=== PATIENT | male | born 1955 | race Caucasian/White ===

== ENCOUNTER 2023-05-08 10:00 | Inpatient (IN) | payer OTHER ==
[~2023-05-08] VITALS: Ht 170.2 cm; Wt 76.1 kg
[~2023-05-08 10:00] MED LIST: APIX5TAB PO; ATO40T PO; BENA-36 PO; MET50T PO; TRAM50TA2 PO; [UNRECOGNIZED DRUG - CODE] IM
[2023-05-13] MEDS: ceFAZolin 2 GM/D5W50ml 50 ML IV ONE (12:28)
[2023-05-13] MEDS ORDERED: HYDROmorphone HCL 2 MG/ML VL/or syr ONE (13:40)
[2023-05-13] MEDS ORDERED: ONDANSETRON HCL 4 MG/2 ML VIAL ONE (13:40)
[2023-05-13] MEDS ORDERED: PROPOFOL 10 MG/ML 20 ML IV ONE ×2 (13:40→15:52)
[2023-05-13] MEDS ORDERED: DexAMETHasone SOD PHOS 10MG/1ML VIAL INJ ONE (13:40)
[2023-05-13] MEDS ORDERED: MIDAZOLAM HCL 2MG/2ML 2ml VIAL (1mg/ml) ONE (13:40)
[2023-05-13] MEDS ORDERED: fentaNYL CITRATE 100 MCG/2 ML VL ONE (13:40)
[2023-05-13] MEDS ORDERED: SODIUM CHLORIDE LOCK 50 ML ONE (13:40)
[2023-05-13] MEDS ORDERED: ROCURONIUM 10MG/ML 10ML VIAL IV ONE (13:40)
[2023-05-13] MEDS: LIDOCAINE 1% HCL (LOCAL ANESTH.) INJ 20ML MDV ONE (14:11)
[2023-05-13] MEDS: TRANEXAMIC ACID 20 ML ONE (14:45)
[2023-05-13] MEDS: D5W/SOD CHLO 0.9% 1,000 ML IV SCH (17:45)
[2023-05-13] MEDS ORDERED: ACETAMINOPHEN 325 MG TAB PO PRN (17:45)
[2023-05-13] MEDS ORDERED: ONDANSETRON HCL 4 MG/2 ML VIAL IV PRN ×2 (17:45→18:45)
[2023-05-13] MEDS: ceFAZolin 1GM/50ML 50 ML IV SCH (17:45)
[2023-05-13] MEDS ORDERED: NITROGLYCERIN 0.4 MG SL TAB SL PRN (17:45)
[2023-05-13] MEDS ORDERED: MORPHINE SULFATE INJ 2 MG/ml SYRG IV PRN (17:45)
[2023-05-13 18:36] VITALS: O2SAT 93
[2023-05-13] MEDS: HYDROmorphone HCL 2 MG/ML VL/or syr ONE (18:40)
[2023-05-13] MEDS: HYDROmorphone HCL 2 MG/ML VL/or syr IV PRN (18:41)
[2023-05-13] MEDS ORDERED: MORPHINE SULFATE 4 MG/ML SYR/VIAL IV PRN (18:45)
[2023-05-13] MEDS ORDERED: LABETALOL HCL 5 MG/ML 4ML SYRINGE IV PRN (18:45)
[2023-05-13] MEDS ORDERED: ePHEDrine SULFATE 50 MG/ML AMP IV PRN (18:45)
[2023-05-13] MEDS ORDERED: MIDAZOLAM HCL 2MG/2ML 2ml VIAL (1mg/ml) IV PRN (18:45)
[2023-05-13] MEDS: CYCLOBENZAPRINE HCL 10 MG TAB PO SCH (18:50)
[2023-05-13 19:50] VITALS: BP 142/66; PULSE 86; RESP 18; TEMP 98; O2SAT 96
[2023-05-13 20:00] VITALS: PULSE 86
[2023-05-13] MEDS: MORPHINE SULFATE INJ 2 MG/ml SYRG IV PRN (20:22)
[2023-05-13] MEDS: DOCUSATE SOD 100 MG CAP PO SCH (21:32)
[2023-05-13] MEDS: HYDROcodone-ACET 10/325MG TAB PO PRN (21:49)
[2023-05-13 22:00] VITALS: BP 136/80; PULSE 80; RESP 18; TEMP 97.8; O2SAT 96
[2023-05-14] VITALS (7 sets, daily range): BP systolic 142–163; BP diastolic 85–123; PULSE 67–110; RESP 18–20; TEMP 97.8–99; O2SAT 93–97
[2023-05-14] MEDS: ceFAZolin 1GM/50ML 50 ML IV SCH (12:32)
[2023-05-14] MEDS: HYDROmorphone HCL 2 MG TAB PO PRN (14:42)
[2023-05-14] MEDS: CARISOPRODOL 350 MG TAB PO SCH (14:42)
[2023-05-14] MEDS ORDERED: METOPROLOL TARTRATE 50 MG TAB PO SCH (17:00)
[2023-05-14] MEDS: ATORVASTATIN 20 MG TAB PO SCH (20:34)
[2023-05-14] MEDS ORDERED: ceFAZolin 1GM/50ML 50 ML IV SCH (21:00)
[2023-05-14] MEDS: METOPROLOL TARTRATE 50 MG TAB PO SCH (22:47)
[2023-05-15] VITALS (8 sets, daily range): BP systolic 134–161; BP diastolic 83–108; PULSE 94–117; RESP 18–21; TEMP 97.8–99.2; O2SAT 92–95
[2023-05-15] MEDS: BENAZEPRIL HCL 10 MG TAB PO SCH (09:37)
[2023-05-15] MEDS ORDERED: CYCL-839 PO (14:08)
[2023-05-15] MEDS ORDERED: OXYC-113 PO (14:08)
[2023-05-16] VITALS (8 sets, daily range): BP systolic 128–164; BP diastolic 84–99; PULSE 79–98; RESP 16–21; TEMP 97.5–98.7; O2SAT 93–96
[2023-05-16] MEDS: POLYETHYLENE GLYCOL 17 GM PWDR PO PRN (10:40)
[2023-05-17] VITALS (7 sets, daily range): BP systolic 143–154; BP diastolic 86–95; PULSE 90–108; RESP 18–20; TEMP 97.9–99; O2SAT 92–96
[2023-05-18] VITALS (7 sets, daily range): BP systolic 125–156; BP diastolic 76–92; PULSE 83–171; RESP 18–20; TEMP 36.9; O2SAT 92–96
[2023-05-18] MEDS: METOPROLOL TARTRATE 1MG/1ML-5ML VIAL IV ONE ×2 (07:02→07:25)
[2023-05-18] MEDS: SODIUM CHLORIDE 0.9% 500 ML IV ONE (09:34)
[2023-05-18 09:37] LABS: Basophils # (auto) 0 10 ^3/uL (0-0.2); Basophils % (auto) 0.3 % (0.0-2.0); Eosinophils # (auto) 0.2 10 ^3/uL (0-0.8); Eosinophils % (auto) 1.6 % (0.0-7.0); Hemoglobin 17.5 g/dL (13.5-17.5); Lymphocytes # (auto) 1.7 10 ^3/uL (0.4-5.4); Lymphocytes % (auto) 16.2 % (10.0-50.0); Mean Corpuscular Hemoglobin 32.2 pg (28.0-32.0); Mean Corpuscular Hgb Conc. 33.1 g/dL (32.0-36.0); Mean Corpuscular Volume 97.4 fL (80.0-100.0); Monocytes # (auto) 0.9 10 ^3/uL (0-1.3); Neutrophils # (auto) 7.6 10 ^3/uL (1.6-8.6); Neutrophils % (auto) 72.9 % (37.0-80.0); Nucleated Red Blood Cells % 0.1 %; Red Blood Cells 5.44 10^6/uL (4.5-5.90); Red Cell Distribution Width 13.6 % (11.8-14.3); White Blood Cell 10.4 10^3/uL (4.4-10.8)
[2023-05-18 10:08] LABS: Alanine Aminotransferase 45 U/L (7-40); Alkaline Phosphatase 40 U/L (46-116); Anion Gap 7 (5-15); BUN/Creatinine Ratio 15.5 (10.0-20.0); Blood Urea Nitrogen 16 mg/dL (9-23); Calcium 9.5 mg/dL (8.7-10.4); Carbon Dioxide 27 mmol/L (20-30); Chloride 103 mmol/L (98-107); Glucose 119 mg/dL (74-106); Magnesium 2.2 mg/dL (1.6-2.6); Potassium 3.7 mmol/L (3.5-5.1); Sodium 137 mmol/L (136-145)
[2023-05-18 10:09] LABS: Aspartate Aminotransferase 51 U/L (13-40); Total Protein 6.7 g/dL (5.7-8.2)
== END 2023-05-18 19:50 | disposition home or self-care (01) | DRG 460 ==
LOC: EDSTATUS 05-13 10:00 → TELE 05-13 17:47 → TELE-CENTR 05-13 19:45
PROVIDERS: ADMIT Orthopaedic Surgery; ATTEND Internal Medicine
PROC: 00NY0ZZ Release Lumbar Spinal Cord, Open Approach (ICD-10-PCS; 2023-05-13)
PROC: 01NB0ZZ Release Lumbar Nerve, Open Approach (ICD-10-PCS; 2023-05-13)
PROC: 4A11X4G Monitoring of Peripheral Nervous Electrical Activity, Intraoperative, External Approach (ICD-10-PCS; 2023-05-13)
PROC: 0SG1071 Fusion of 2 or more Lumbar Vertebral Joints with Autologous Tissue Substitute, Posterior Approach, Posterior Column, Open Approach (ICD-10-PCS; principal; 2023-05-13 14:37)
DX: M48.062 Spinal stenosis, lumbar region with neurogenic claudication (principal); I48.20 Chronic atrial fibrillation, unspecified; M54.16 Radiculopathy, lumbar region; G89.29 Other chronic pain; E78.5 Hyperlipidemia, unspecified; I48.0 Paroxysmal atrial fibrillation; I10 Essential (primary) hypertension; R00.0 Tachycardia, unspecified; Z79.01 Long term (current) use of anticoagulants; Z85.72 Personal history of non-Hodgkin lymphomas
CPT/HCPCS: 36415; 72100; 76000; 80053; 83735; 85025; 86850; 86900; 86901; 97110; 97116; 97163; 97530; G0378; J1100; J2001; J2250; J2405; J2704; J7042